=== PATIENT | male | born 1965 | race Caucasian/White ===

== ENCOUNTER 2020-04-15 09:52 | Emergency (ER) | payer BC ==
[~2020-04-15] VITALS: Ht 172.7 cm; Wt 138.8 kg
[~2020-04-15 09:52] MED LIST: ALLOPURINOL100 MG OR; BENICAR40 MG OR; LORTAB 5 OR; METO50TA52 OR
[2020-04-15 10:38] LABS: HEMATOCRIT 45.5 % (39.0-50.0); HEMOGLOBIN 14.6 g/dl (14.0-18.0); IMMATURE GRANULOCYTES 0.6 % (0.0-5.0); MEAN CELL VOLUME 89.2 fL CALC (80.0-100.0); MEAN CORPUSCULAR HGB 28.6 pG CALC (26.0-32.0); MEAN CORPUSCULAR HGB CONC 32.1 g/dL CAL (32.0-36.0); NEUT# 3.83 thou/uL (1.82-7.42); RED BLOOD COUNT 5.1 mill/uL (4.70-6.10); RED CELL DISTRI WIDTH 12.9 % (11.5-15.5)
[2020-04-15] MEDS ORDERED: HYZAAR1 TAB PO (10:42)
[2020-04-15] MEDS ORDERED: NORVASC5 M1 PO (10:43)
[2020-04-15] MEDS ORDERED: ZINC50 MG PO (10:43)
[2020-04-15] MEDS ORDERED: QUERCETIN PO (10:44)
[2020-04-15] MEDS ORDERED: VITAMI16 PO (10:45)
[2020-04-15] MEDS ORDERED: VITAMIN D7 PO (10:47)
[2020-04-15 11:37] LABS: ALBUMIN 4.3 g/dL (3.2-5.0); ALKALINE PHOSPHATASE 77 u/l (38-126); ANION GAP 15 (6-22 (CALC)); BUN 14 mg/dL (9-20); BUN/CREATININE RATIO 15 (12-20 (CALC)); CARBON DIOXIDE 27 mmol/l (22-30); CHLORIDE 99 mmol/l (95-108); CREATININE 0.9 mg/dL (0.7-1.3); GFR > 60 ML/MIN (>=60 (CALC)); GFR FOR AFR.AMER. > 60 ML/MIN (>=60 (CALC)); POTASSIUM 4.6 mmol/l (3.5-5.1); SODIUM 136 mmol/l (137-146); TOTAL PROTEIN 7.2 g/dL (6.3-8.2)
[2020-04-15 11:42] LABS: BILIRUBIN, TOTAL 0.6 mg/dL (0.0-1.4); SGOT/AST 50 u/l (17-59)
[2020-04-15 11:50] LABS: MYOGLOBIN 73 ng/mL (0 - 121)
[2020-04-15] MEDS ORDERED: ZITHROMAX250 MG PO (12:29)
[2020-04-15 12:56] VITALS: BP 126/76
== END 2020-04-15 14:00 | disposition home or self-care (01) | DRG 179 ==
LOC: ED 09:52
PROVIDERS: Emergency Medicine
DX: U07.1 COVID-19 (principal); R07.9 Chest pain, unspecified; R50.9 Fever, unspecified; I10 Essential (primary) hypertension

== ENCOUNTER 2024-04-23 11:30 | Emergency (ER) | payer OTHER ==
[~2024-04-23] VITALS: Ht 175.3 cm; Wt 138.3 kg
[~2024-04-23 11:30] MED LIST changes: +ATORVASTATIN CA10 MG PO; +BEET ROOT500 MG PO; +FENOFIBRATE160 MG PO; +HYZAAR1 TAB PO; +JOINT HEALTH PO; +LOSARTAN POTAS100 MG PO; +METFORMIN HCL1000 MG PO; +MULTI VIT PO; +NEURIVA1 CAP PO; +NORMODYNE/TRAN100 MG PO; +NORVASC10 M1 PO; +NORVASC5 M1 PO; +QUERCETIN PO; +VITAMI16 PO; +VITAMIN D7 PO; +WELLBUTRIN XL300 MG PO; +ZINC50 MG PO; +ZITHROMAX250 MG PO
[2024-04-23] MEDS ORDERED: ZPAK PO (15:05)
[2024-04-23] MEDS ORDERED: AZITHROMYCIN 250 MG/TAB PO ONE (15:05)
[2024-04-23] MEDS ORDERED: ALBUTEROL SULFATE 8 GM INH IN ONE (15:05)
[2024-04-23] MEDS ORDERED: PREDNISONE20 MG PO (15:05)
[2024-04-23] MEDS ORDERED: predniSONE 20 MG/TAB PO ONE (15:05)
[2024-04-23 15:12] VITALS: BP 134/78
== END 2024-04-23 15:18 | disposition home or self-care (01) | DRG 153 ==
LOC: ED 11:30
DX: J06.9 Acute upper respiratory infection, unspecified (principal)